=== PATIENT | female | born 1940 | race Caucasian/White ===

== ENCOUNTER 2016-10-24 17:55 | Emergency (ER) | payer MEDICARE, MEDICAID ==
--- NOTE | 2016-10-24 18:35 | EDM.PDOC ---
<Tina Gates - Last Filed: 10/24/16 18:44> ED HPI ENT - General Chief Complaint: ENT Problem Stated Complaint: ENT PROB Time Seen by Provider: 10/24/16 18:33 - History of Present Illness INITIAL COMMENTS - FREE TEXT/NARRATIVE: Patient presents to the ER with c/o dental pain to the right lower jaw. SHe states she bit into a chicken bone last night and she heard a crack. She states from that time it progressively got worse with pain and swelling. - Related Data Allergies/ADRs: Allergies Allergy/AdvReac Type Severity Reaction Status Date / Time bisoprolol Allergy Nausea and Verified 05/30/14 12:58 Vomiting Egg Derived Allergy Nausea Verified 05/30/14 12:58 levofloxacin [From Levaquin] Allergy Cannot Verified 05/30/14 12:58 Remember lorazepam Allergy Arrhythmias Verified 05/30/14 12:58 menthol [From Icy Hot] Allergy Numbness Verified 10/24/16 18:20 methyl salicylate Allergy Numbness Verified 10/24/16 18:20 [From Icy Hot] Penicillins Allergy Rash Verified 05/30/14 12:58 fish Allergy Difficulty Uncoded 10/24/16 18:19 Breathing latex Allergy Itching Uncoded 06/28/14 08:52 Home Meds: Home Meds Digoxin [Digox] 1 tab PO DAILY 05/30/14 [History] Furosemide [Furosemide] 1 tab PO BID 05/30/14 [History] Lisinopril [Prinivil] 1 tab PO DAILY 05/30/14 [History] Metoprolol Succinate [Toprol Xl] 150 mg PO DAILY 05/30/14 [History] Potassium Chloride [Klor-Con M20] 1 tab PO DAILY 05/30/14 [History] Simvastatin [Simvastatin] 1 tab PO BEDTIME 05/30/14 [History] Warfarin [Coumadin] 1 tab PO ASDIRECTED 05/30/14 [History] Glimepiride [Amaryl] 8 mg PO DAILY 10/24/16 [History] Levothyroxine Sodium [Synthroid] 125 mcg PO DAILY 10/24/16 [History] ED ROS ENT - Review of Systems Review Of Systems: ROS reveals no pertinent complaints other than HPI. ED EXAM, ENT - Physical Exam Exam: See Below Exam Limited By: No limitations General Appearance: alert, WD/WN, no apparent distress Eye Exam: bilateral eye: normal inspection Ears: normal external exam, normal canal, hearing grossly normal, normal TMs Nose: normal inspection, normal mucousa, no blood Mouth/Throat: Dental abcess, Dental pain, Dental tenderness, Gum swelling, Other (Swelling and pain to the right cheek, right mandible.) Head: atraumatic, normocephalic Neck: normal inspection, supple, non-tender, full range of motion Respiratory/Chest: no respiratory distress, lungs clear, normal breath sounds, no accessory muscle use, chest non-tender Cardiovascular: normal peripheral pulses, regular rate, rhythm, no edema, no gallop, no JVD, no murmur, no rub GI/Abdominal: normal bowel sounds, soft, non tender, no organomegaly, no distention, no abnormal bruit, no mass (Female) Exam: Deferred Rectal (Female) Exam: Deferred Back: normal inspection, full range of motion Extremities: normal inspection, normal range of motion, non-tender, no pedal edema, normal capillary refill Neurological: alert, oriented, CN II-XII intact, normal cognition, normal gait, normal reflexes, no motor/sensory deficits Psychiatric: normal affect, normal mood Skin: Warm, Dry, Intact, Normal color, No rash Lymphatic: adenopathy: (RIght submandibular) Course - Vital Signs Last Recorded V/S: Last Vital Signs Temp 37.4 C 10/24/16 18:07 Pulse 103 H 10/24/16 18:07 Resp 18 10/24/16 18:07 BP 109/77 10/24/16 18:07 Pulse Ox 95 10/24/16 18:07 Departure - Departure Time of Disposition: 18:42 Disposition: Home, Self-Care 01 Clinical Impression: Dental abscess Instructions: Dental Abscess, [id number] Forms: ED Department Discharge Additional Instructions: Clindamycin 300m po 4x per day for 10 days. Viscous Lidocaine gel in the mouth to the area every 2 hours as needed for pain. Remember to call the clinic tomorrow to check about having your INR drawn early due to being on antibiotics. Follow up with dentistry. <Rolo Tsai - Last Filed: 10/24/16 18:48> ED HPI ENT - General Source of Information: Reports: Patient, Old records, RN, RN notes reviewed History Limitations: Reports: No limitations - History of Present Illness INITIAL COMMENTS - FREE TEXT/NARRATIVE: C/O abscessed tooth Timing/Duration: Reports: Constant Severity: severe Location: Reports: mouth Quality: Reports: Ache, Throbbing Improves with: Reports: None Worsens with: Reports: None Associated Symptoms: Reports: no other symptoms Social & Family History - Family History Family Medical History: Noncontributory - Tobacco Use Smoking Status *Q: Never Smoker Years of Tobacco use: 22 Month Tobacco Last Used: 1993 Second Hand Smoke Exposure: Yes - Alcohol Use Days Per Week of Alcohol Use: 0 - Recreational Drug Use Recreational Drug Use: No Drug Use in Last 12 Months: No - Living Situation & Occupation Living situation: Reports: with family ED ROS ENT - Review of Systems Review Of Systems: ROS reveals no pertinent complaints other than HPI. Course - Re-Assessments/Exams Free Text/Narrative Re-Assessment/Exam: 10/24/16 18:34 FOR THIS ENCOUNTER THE PATIENT WAS SEEN IN CONJUNCTION WITH [facility] STUDENT TINA GATES. ALL PATIENT CARE AND/OR PROCEDURE(S), DIAGNOSTIC ORDERS, MEDICATION(S) AND TREATMENT ORDERS, DISPOSITION ORDERS/PLANNING, AND DISCHARGE/FOLLOW UP INSTRUCTIONS WERE UNDER MY DIRECT SUPERVISION. gbd Departure - Departure Condition: good
== END 2016-10-24 18:49 | disposition home or self-care (01) ==
LOC: DL.ED 17:55
CPT/HCPCS: 99282; 99283

== ENCOUNTER 2025-04-09 17:31 | Emergency (ER) | payer MEDICAID, MEDICARE ==
[2025-04-09 10:56] LABS: PLATELET COUNT,PLT 271 10^3/uL (150-450); RED BLOOD CELL COUNT 4.72 10^6/uL (4.2-5.4); WHITE BLOOD CELL COUNT,WBC 13.2 10^3/uL (5.0-10.0)
[2025-04-09 10:57] LABS: LYMPHOCYTES PERCENT AUTO 25.6 % (20.5-50.1); MONOCYTES PERCENT AUTO 7.0 % (2-8); NEUTROPHILS PERCENT AUTO 66.0 % (42.2-75.2)
[2025-04-09 10:58] LABS: BASOPHILS PERCENT AUTO 0.5 % (0.0-1.0); EOSINOPHILS PERCENT AUTO 0.9 % (1.0-3.0)
[2025-04-09 11:08] LABS: INR 3.1 (0.9-1.2)
[2025-04-09 11:16] LABS: A/G RATIO 0.9; ALANINE AMINOTRANSFERASE,ALT 19 U/L (14-59); ASPARTATE AMNIOTRANSFERASE,AST 26 U/L (15-37); BILIRUBIN TOTAL 0.7 mg/dL (0.2-1.0); BLOOD UREA NITROGEN,BUN 12 mg/dL (7-18); CARBON DIOXIDE,CO2 26 mmol/L (21-32); CREATININE 1.14 mg/dL (0.55-1.02); GLUCOSE RANDOM 318 mg/dL (70-99); POTASSIUM,K 4.2 mmol/L (3.5-5.1); PROTEIN TOTAL,TP 8.0 g/dL (6.4-8.2); SODIUM,NA 127 mmol/L (136-145)
[2025-04-09 11:19] LABS: CHLORIDE,CL 89 mmol/L (98-107); ESTIMATED GFR 48 mL/min (>=60)
[2025-04-09 11:20] LABS: ETHANOL BLOOD MEDICAL < 3 mg/dL (0)
[2025-04-09 11:22] LABS: BAND PERCENT MAN 2 %; EOSINOPHILS PERCENT MAN 1 % (1-3); LYMPHOCYTES PERCENT MAN 25 % (20-50); MONOCYTES PERCENT MAN 5 % (2-8); SEG NEUTROPHILS PERCENT MAN 67 % (42-75)
[2025-04-09 12:06] LABS: AMPHETAMINES,URINE NEGATIVE (NEGATIVE); BARBITURATES,URINE NEGATIVE (NEGATIVE); MDMA (ECSTASY), URINE NEGATIVE (NEGATIVE); METHAMPHETAMINES,URINE NEGATIVE (NEGATIVE); OPIATES,URINE NEGATIVE (NEGATIVE); OXYCODONE,URINE NEGATIVE (NEGATIVE); PHENCYCLIDINE,URINE NEGATIVE (NEGATIVE); TCA,URINE NEGATIVE (NEGATIVE)
[2025-04-09 12:07] LABS: APPEARANCE,URINE SLIGHTLY CLOUDY (CLEAR); GLUCOSE,URINE 500 (NEGATIVE); OCCULT BLOOD,URINE SMALL (NEGATIVE)
[2025-04-09 12:16] LABS: EPITHELIAL CELLS,URINE MODERATE /HPF (NOT SEEN)
[2025-04-09] MEDS: Sodium Chloride 0.9% 10 ML Syringe FLUSH PRN (12:19)
[2025-04-09 12:24] VITALS: BP 178/67; PULSE 110
[2025-04-09 17:28] LABS: BASE EXCESS ARTERIAL -5 mmol/L ((-2)-(+3)); BICARBONATE,ARTERIAL 22.0 mmol/L (22-26); O2 DELIVERY DEVICE VENTILATOR; O2 SATURATION ARTERIAL 99 % (95-100); PCO2 ARTERIAL 51 mmHg (35-45); PH,ARTERIAL 7.26 (7.35-7.45); PO2 ARTERIAL 166 mmHg (70-100)
[~2025-04-09 17:31] MED LIST: Norepinephrine Bit/D5W Premix 250 ML IV SCH; Norepinephrine Bit/D5W Premix 250 ML ONE; fentaNYL 250 MCG/5 ML SDV ONE
[2025-04-09 17:41] LABS: BASOPHILS PERCENT AUTO 0.4 % (0.0-1.0); EOSINOPHILS PERCENT AUTO 0.2 % (1.0-3.0); LYMPHOCYTES PERCENT AUTO 21.9 % (20.5-50.1); MONOCYTES PERCENT AUTO 7.3 % (2-8); NEUTROPHILS PERCENT AUTO 70.2 % (42.2-75.2); PLATELET COUNT,PLT 240 10^3/uL (150-450); RED BLOOD CELL COUNT 5.21 10^6/uL (4.2-5.4); WHITE BLOOD CELL COUNT,WBC 16.3 10^3/uL (5.0-10.0)
[2025-04-09 17:43] LABS: BLOOD UREA NITROGEN,BUN 11 mg/dL (7-18); CARBON DIOXIDE,CO2 26 mmol/L (21-32); CHLORIDE,CL 92 mmol/L (98-107); CREATININE 0.99 mg/dL (0.55-1.02); ESTIMATED GFR 57 mL/min (>=60); GLUCOSE RANDOM 213 mg/dL (70-99); POTASSIUM,K 4.3 mmol/L (3.5-5.1); SODIUM,NA 137 mmol/L (136-145)
[2025-04-09 17:44] LABS: A/G RATIO 0.85; ALANINE AMINOTRANSFERASE,ALT 25 U/L (14-59); ASPARTATE AMNIOTRANSFERASE,AST 31 U/L (15-37); BILIRUBIN TOTAL 0.5 mg/dL (0.2-1.0); PROTEIN TOTAL,TP 8.7 g/dL (6.4-8.2)
[2025-04-09] MEDS ORDERED: Midazolam 5 MG/ML 10 ML MDV ONE (17:51)
[2025-04-09] MEDS ORDERED: fentaNYL 250 MCG/5 ML SDV ONE (17:51)
== END 2025-04-09 18:06 ==
LOC: DL.ED 17:31
DX: I46.9 Cardiac arrest, cause unspecified (principal); N17.9 Acute kidney failure, unspecified; R79.89 Other specified abnormal findings of blood chemistry; R56.9 Unspecified convulsions; E87.20 Acidosis, unspecified; N30.00 Acute cystitis without hematuria; E87.1 Hypo-osmolality and hyponatremia; E03.9 Hypothyroidism, unspecified; Z88.1 Allergy status to other antibiotic agents; Z91.012 Allergy to eggs; Z91.040 Latex allergy status; Z88.8 Allergy status to other drugs, medicaments and biological substances; Z91.013 Allergy to seafood; Z88.0 Allergy status to penicillin; Z79.51 Long term (current) use of inhaled steroids; Z79.899 Other long term (current) drug therapy; Z79.84 Long term (current) use of oral hypoglycemic drugs; Z79.890 Hormone replacement therapy
CPT/HCPCS: 31500; 36415; 36600; 70450; 80053; 80305; 80307; 81001; 82803; 82947; 83605; 83690; 83735; 84484; 85025; 85610; 87086; 87088; 87186; 92950; 93005; 93010; 99285; 99291; J0696; J1630; J7030